=== PATIENT | male | born 1960 | race Hispanic/Latino ===

== ENCOUNTER 2016-09-07 11:49 | Outpatient (CLI) | payer OTHER ==
--- NOTE | 2016-09-08 12:54 | PET Report ---
PET/CT:09/07/16 11:49:00 CLINICAL: Renal cancer restaging. RADIOPHARMACEUTICAL: 16.2mCi F18-FDG. COMPARISON: CT abdomen without contrast 07/26/16 TECHNIQUE- Following intravenous injection of F-18 FDG and an approximately 60 minute uptake period, CT and PET images from the mid skull to the upper thighs were acquired with the patient in the fasted state. No contrast was administered. The CT protocol used for this PET CT study is designed for attenuation correction and anatomic localization of PET abnormalities. 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 Plasma glucose at the time of this test: 107g/dl. The standardized uptake values (SUV) are normalized to patient body weight and indicate the highest activity concentration (SUV max) in a given disease site. FINDINGS: Brain--Physiologic FDG uptake in the visualized regions of the brain. Neck--Physiologic FDG uptake . Chest--Physiologic FDG uptake in mediastinal blood pool and myocardium. Lungs--No abnormal uptake. However, too numerous to count bilateral multilobar noncalcified lung nodules. Most of the nodules measure less than 1 cm. A left lower lobe nodule measures 1.1 cm. Pleura/pericardium--No abnormal uptake. Thoracic nodes--No abnormal uptake. However, a 3.8 x 3.4 cm non-FDG avid right hilar mass is slightly larger compared to the previous CT. Hepatobiliary--No abnormal uptake. Liver background SUV mean, as a reference for comparing FDG studies, is 5.2 . No liver mass. Spleen--No abnormal uptake. Pancreas--No abnormal uptake. Adrenal Glands--No abnormal uptake. Kidneys/Ureters/Bladder--No abnormal uptake. Status post right nephrectomy. A 4.4 cm left lower pole renal cyst. Abdominopelvic Nodes--No abnormal uptake. Bowel/Peritoneum/Mesentery--No abnormal uptake. A non-FDG avid right upper quadrant intraperitoneal mass measures 3.6 x 2.8 cm. It corresponds to the recently biopsied lymph node. Pelvic organs--No abnormal uptake. Bones/Soft Tissues--No abnormal uptake. No bone lesions. IMPRESSION-1. Too numerous to count non-FDG avid multilobar pulmonary metastases. 2. A 3.8 cm right pulmonary hilar adrian metastasis. 3. Single 3.6 cm intra-abdominal lymph node metastasis.
== END 2016-09-07 11:50 | disposition home or self-care (01) ==
LOC: PET 11:49
PROVIDERS: ATTEND Internal Medicine Hematology & Oncology
DX: C77.2 Secondary and unspecified malignant neoplasm of intra-abdominal lymph nodes (principal); C78.00 Secondary malignant neoplasm of unspecified lung; N28.1 Cyst of kidney, acquired; R91.8 Other nonspecific abnormal finding of lung field; Z90.5 Acquired absence of kidney
CPT/HCPCS: 78815; 82962; A9552